=== PATIENT | female | born 1975 | race Two or more races ===

== ENCOUNTER 2024-10-07 19:05 | Emergency (ER) | payer OTHER ==
[~2024-10-07] VITALS: Ht 162.6 cm; Wt 68.0 kg
[2024-10-07] MEDS ORDERED: SYNTHROID137 MCG PO (19:13)
[2024-10-07] MEDS ORDERED: HYOSCYAMINE SULFATE 0.125 MG TAB.SUBL SL ONE (20:00)
[2024-10-07] MEDS ORDERED: FAMOTIDINE/PF 20 MG/2 ML VIAL ONE (20:00)
[2024-10-07] MEDS ORDERED: FAMOTIDINE/PF 20 MG/2 ML VIAL IV PUSH ONE (20:00)
[2024-10-07] MEDS ORDERED: ONDANSETRON HCL 2 MG/ML VIAL ONE (20:00)
[2024-10-07] MEDS ORDERED: HYOSCYAMINE SULFATE 0.125 MG TAB.SUBL ONE (20:00)
[2024-10-07] MEDS ORDERED: 0.9 % SODIUM CHLORIDE 1,000 ML IV SCH (20:00)
[2024-10-07] MEDS ORDERED: ONDANSETRON HCL 2 MG/ML VIAL IV ONE (20:00)
[2024-10-07 20:31] LABS: HEMATOCRIT 36.7 % (36.0-45.00); HEMOGLOBIN 12.4 g/dL (12.0-15.00); MEAN CELL VOLUME 83.8 fL (80.00-100.00); MEAN CORPUSCULAR HEMOGLOBIN 28.2 pg (27.00-32.0); MEAN CORPUSCULAR HGB CONC 33.6 g/dl (32.0-36.0); PLATELET COUNT 215 K/uL (150-450); RED BLOOD COUNT 4.38 M/uL (4.00-6.00); RED CELL DISTRIBUTION WIDTH 14.3 % (11.5-14.5)
[2024-10-07 21:21] LABS: CALCIUM 9.4 mg/dL (8.5-10.1); CREATININE SERUM 0.74 mg/dL (0.55-1.02); GFR 83.41; POTASSIUM 3.87 mEq/L (3.5-5.1)
[2024-10-07] MEDS ORDERED: MAG HYDROX/ALUMINUM HYD/SIMETH 30 ML BLIST.PACK PO ONE ×2 (23:30→23:34)
== END 2024-10-07 23:41 | disposition home or self-care (01) ==
LOC: ER 19:07
PROVIDERS: Emergency Medicine
DX: K29.70 Gastritis, unspecified, without bleeding (principal); Z20.822 Contact with and (suspected) exposure to COVID-19

== ENCOUNTER 2024-12-07 08:32 | Outpatient (CLI) | payer OTHER ==
[~2024-12-07 08:32] MED LIST: SYNTHROID137 MCG PO
[2024-12-07 09:36] LABS: HEMATOCRIT 34.7 % (36.0-45.00); HEMOGLOBIN 11.2 g/dL (12.0-15.00); MEAN CELL VOLUME 85.8 fL (80.00-100.00); MEAN CORPUSCULAR HEMOGLOBIN 27.8 pg (27.00-32.0); MEAN CORPUSCULAR HGB CONC 32.4 g/dl (32.0-36.0); PLATELET COUNT 200 K/uL (150-450); RED BLOOD COUNT 4.04 M/uL (4.00-6.00); RED CELL DISTRIBUTION WIDTH 14.4 % (11.5-14.5)
[2024-12-07 09:44] LABS: ERYTHROCYTE SEDIMENTATION RATE 59 mm/hr
[2024-12-07 09:51] LABS: PH,URINE 5.5 (5.0-8.0); URINE APPEARANCE Clear; URINE BACTERIA 1327.9 uL (0.0-1933); URINE BILIRRUBIN Negative (NEGATIVE); URINE BLOOD Negative; URINE CAST 1.47 uL (0.0-1.40); URINE COLOR Dark Yellow; URINE EPITHELIAL CELLS 31.6 uL (0.0-38.8); URINE GLUCOSE Negative (NEGATIVE); URINE KETONE Negative (NEGATIVE); URINE LEUKOCYTE Negative; URINE NITRATE Negative; URINE PROTEIN Negative (NEGATIVE); URINE RBC 7.5 uL (0.0-20.8); URINE WBC 6.8 uL (0.0-23.2)
[2024-12-07 10:34] LABS: ALKALINE PHOSPHATASE 49 U/L (50-136); ALT/SGPT 22 U/L (12-78); ANION GAP 8 (10.0-20.0); AST/SGOT 23 U/L (15-37); BILIRUBIN TOTAL 0.62 mg/dL (0.3-1.2); BLOOD UREA NITROGEN 19 mg/dL (7-18); BUN CREA RATIO 31 (7.0-25.0); CALCIUM 8.8 mg/dL (8.5-10.1); CARBON DIOXIDE 29 mEq/L (21-32); CHLORIDE 105 mmol/L (98-107); CHOL HDL RATIO 3.4 (0-5.0); CHOLESTEROL 199 mg/dL (0-200); CREATININE SERUM 0.61 mg/dL (0.55-1.02); GFR 103.82; GLOBULINA 4.1 G/DL (2.4-3.5); GLUCOSE FASTING 78 mg/dL (65-100); HDL 58 mg/dl (40-60); LDL 131 mg/dl (0-130); OSMOLALITY SERUM 277 MOSM/KG (275-295); POTASSIUM 3.67 mEq/L (3.5-5.1); SODIUM 138 mmol/L (136-145); TOTAL PROTEIN 8.1 gm/dL (6.4-8.2); TRIGLYCERIDES 48 mg/dL (0-150); VLDL 9 (0-39)
[2024-12-07 10:46] LABS: C-REACTIVE PROTEIN < 0.29 MG/DL (0.00-0.29)
[2024-12-07 11:09] LABS: VITAMIN D3 25 HYDROXY 33.26 ng/ml (30-120)
[2024-12-08 07:06] LABS: HEPATITIS C VIRUS ANTIBODY Non Reactive (Non Reactive)
[2024-12-08 09:10] LABS: FOLLICLE STIMULATING HORMONE 2.9 mIU/mL (.); LEUTEINIZING HORMONE 1.8 mIU/mL (.)
== END 2024-12-07 08:36 | disposition home or self-care (01) ==
LOC: LAB 08:32
DX: M06.4 Inflammatory polyarthropathy (principal); Z12.11 Encounter for screening for malignant neoplasm of colon; R73.9 Hyperglycemia, unspecified; E78.2 Mixed hyperlipidemia; N39.0 Urinary tract infection, site not specified; N40.0 Benign prostatic hyperplasia without lower urinary tract symptoms; E55.9 Vitamin D deficiency, unspecified; D51.9 Vitamin B12 deficiency anemia, unspecified; D64.9 Anemia, unspecified; E03.9 Hypothyroidism, unspecified

== ENCOUNTER 2024-12-15 15:33 | Outpatient (CLI) | payer OTHER | END 2024-12-15 15:40 | disposition home or self-care (01) | LOC: RAD 15:33 | DX: M79.671 Pain in right foot (principal); M79.641 Pain in right hand; M25.531 Pain in right wrist; M25.511 Pain in right shoulder ==

== ENCOUNTER → 2025-01-22 | Outpatient (CLI) | payer OTHER ==
[2025-01-22 08:15] LABS: ALBUMIN 3.8 gm/dL (3.4-5.0); BILIRUBIN TOTAL 0.51 mg/dL (0.3-1.2); CALCIUM 8.2 mg/dL (8.5-10.1); CHOL HDL RATIO 3.2 (0-5.0); CREATININE SERUM 0.62 mg/dL (0.55-1.02); GFR 101.89; GLOBULINA 3.9 G/DL (2.4-3.5); POTASSIUM 3.94 mEq/L (3.5-5.1); TOTAL PROTEIN 7.7 gm/dL (6.4-8.2); TSH 0.556 uIU/mL (0.358-3.74)
== END | disposition home or self-care (01) ==
LOC: LAB 06:27
DX: E03.8 Other specified hypothyroidism (principal); E55.9 Vitamin D deficiency, unspecified; E04.2 Nontoxic multinodular goiter; E78.2 Mixed hyperlipidemia

== ENCOUNTER 2025-05-19 07:22 | Outpatient (CLI) | payer OTHER ==
[2025-05-19 08:37] LABS: BASO % 0.2 % (0.1-1.2); EOS # 0.07 (0.04-0.54); EOS % 1.5 % (0.7-7.0); LYMPH # 1.41 (1.18-3.74); LYMPH % 30.7 % (19.3-53.1); MEAN PLATELET VOLUME 11.10 fl (9.4-12.4); MONO # 0.38 (0.24-0.82); MONO % 8.3 % (4.7-12.5); NEUT # 2.71 (1.56-6.13); NEUT % 59.1 % (34.0-71.1); RED CELL DISTRIBUTION WIDTH 13.2 % (11.6-14.4)
[2025-05-19 09:10] LABS: ALT/SGPT 20.0 U/L (12-78); AST/SGOT 20.0 U/L (15-37); BILIRUBIN TOTAL 0.32 mg/dL (0.3-1.2); BUN CREA RATIO 42.0 (7.0-25.0); CREATININE SERUM 0.45 mg/dL (0.55-1.02); GFR 147.48; GLOBULINA 4.0 G/DL (2.4-3.5); GLUCOSE FASTING 83.0 mg/dL (65-100); OSMOLALITY SERUM 281.0 MOSM/KG (275-295); T4 FREE 1.14 NG/ML (0.76-1.46)
[2025-05-19 09:12] LABS: TSH 0.334 uIU/mL (0.358-3.74)
== END 2025-05-19 07:25 | disposition home or self-care (01) ==
LOC: LAB 07:22
PROVIDERS: ATTEND Specialist
DX: E03.8 Other specified hypothyroidism (principal); I11.9 Hypertensive heart disease without heart failure

== ENCOUNTER 2025-07-05 06:07 | Outpatient (CLI) | payer OTHER ==
[2025-07-05 07:54] LABS: ALT/SGPT 21.0 U/L (12-78); AST/SGOT 21.0 U/L (15-37); BILIRUBIN TOTAL 0.36 mg/dL (0.3-1.2); BILIRUBIN,CONJUGATED 0.12 mg/dL (0.0-0.2)
== END 2025-07-05 06:10 | disposition home or self-care (01) ==
LOC: LAB 06:07
PROVIDERS: ATTEND Internal Medicine Gastroenterology
DX: R94.5 Abnormal results of liver function studies (principal); R07.9 Chest pain, unspecified; R97.8 Other abnormal tumor markers; R10.84 Generalized abdominal pain